=== PATIENT | male | born 1950 | race Caucasian/White ===

== ENCOUNTER 2018-09-16 15:43 | Outpatient (REF) | payer OTHER, SELFPAY | END 2018-09-16 16:03 | LOC: NCHCN 15:43 | PROVIDERS: PCP Physician Assistant Medical; Referring Provider Nurse Practitioner Family; Visit Provider Nurse Practitioner Family | DX: K13.70 Unspecified lesions of oral mucosa (principal) | CPT/HCPCS: 87529; 87798 ==

== ENCOUNTER 2019-02-02 17:00 | Inpatient (IN) | payer OTHER, SELFPAY ==
[2019-02-02] VITALS (17 sets, daily range): BP systolic 92–168; BP diastolic 59–137; PULSE 68–150; RESP 12–19; TEMP 36.1–37; O2SAT 88–100
--- NOTE | 2019-02-02 17:15 | DI.RAD_ITS ---
SYMPTOM/DIAGNOSIS: N/V/SBO PA CHEST: The heart is normal in size. The lungs are clear. The mediastinal structures and pleura appear intact. CONCLUSION: Normal chest. No evidence of acute cardiopulmonary disease. 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 SUPINE AND UPRIGHT FILMS : Supine and upright films of the abdomen were obtained. There is scattered gas and feces in the colon. Small air fluid levels are identified in the colon. There are some mildly dilated small bowel loops with air fluid levels. The findings are nonspecific. There is no evidence of free air. There is no evidence of gross organomegaly or localized intra-abdominal or pelvic mass. SUMMARY: Findings which could represent an ileus. The possibility of a partial small bowel obstruction could not be entirely excluded. If there is further strong specific clinical question then further assessment with a CT could be considered.
--- NOTE | 2019-02-02 17:17 | W.ED.GENAD ---
Discharge Plan Disposition Patient Disposition: [facility] INPATIENT Condition: Improving Discharge Details Chief Complaint: Abd Prob Clinical Impression: Small bowel obstruction Reason For Visit: i have an obstruction Primary Care Provider: Travis Lemon ED Provider: Miko Mcmullen Home Meds and New Rx's Prescriptions: No Action hyoscyamine sulfate [Levsin/SL] 0.125 MG tablet, sublingual 0.125 mg Sublingual Q4H PRN Qty: 20 RF: 0 aspirin [Aspir-81] 81 MG tablet,delayed release (DR/EC) 81 mg PO DAILY RF: 0 clopidogrel [Plavix] 75 MG tablet 75 mg PO DAILY RF: 0 atorvastatin [Lipitor] 20 MG tablet 20 mg PO DAILY RF: 0 lisinopril 20 MG tablet 20 mg PO DAILY RF: 0 nitroglycerin [Nitrostat] 0.4 MG tablet, sublingual 1 tab Sublingual Q5 MIN PRN X3 PRNRF: 0 albuterol sulfate [ProAir HFA] 8.5 GM HFA aerosol inhaler 8.5 gm Inhalation DIRECTED RF: 0 oxycodone 5 MG tablet 5 mg PO Q6H PRN PRN (Reason: Severe Pain) Qty: 12 RF: 0 tiotropium bromide [Spiriva with HandiHaler] 1 PUFF capsule, w/inhalation device 1 puff Inhalation DAILY RF: 0 budesonide-formoterol [Symbicort] 10.2 GM HFA aerosol inhaler 2 puff Inhalation BID RF: 0 Medical Decision Making 68-year-old male with a history of recurrent small bowel obstruction presents with abdominal distention and vomiting over hours today. He is hypertensive and in distress on arrival. Abdomen is distended and tympanitic. Most consistent with acute small bowel obstruction, must rule out free air. Patient had IV access established, laboratories obtained, given fluid bolus, antiemetic, parenteral analgesic with some improvement. His white blood cell count is unremarkable and chemistries are reassuring with a negative lipase. X-ray reveals small bowel obstruction with air-fluid levels. Case discussed with Dr. Rowan patient to be admitted. Lab Data Lab results reviewed: Yes I reviewed the patient's lab results. Laboratory Results - last 24 hr 02/02/19 02/02/19 02/02/19 17:20 17:20 18:00 WBC 9.88 RBC 5.46 Hgb 18.1 H Hct 51.6 H MCV 94.5 MCH 33.2 H MCHC 35.1 RDW 13.0 Plt Count 219 MPV 9.8 Immature Gran % 0.9 Neutrophils % 63.3 Lymphocytes % 22.6 Monocytes % 10.6 Eosinophils % 1.8 Basophils % 0.8 Absolute Neutrophils 6.25 Absolute Lymphocytes 2.23 Absolute Monocytes 1.05 H Absolute Eosinophils 0.18 Absolute Basophils 0.08 Sodium 137 Potassium 4.0 Chloride 100 Carbon Dioxide 28.6 Anion Gap 8.4 BUN 17 Creatinine 1.24 Estimated GFR/1.73 m2 58.33 Glucose 90 Calcium 10.0 Magnesium 2.3 Total Bilirubin 0.8 AST 30 ALT 32 Alkaline Phosphatase 87 Total Protein 8.7 H Albumin 4.8 Lipase 71 L Urine Color Yellow Urine Clarity Clear Urine pH 7.5 Ur Specific [place] 1.015 Urine Protein Negative Urine Ketones Negative Urine Blood Negative Urine Nitrite Negative Urine Bilirubin Negative Urine Urobilinogen 0.2 Ur Leukocyte Esterase Negative Urine Glucose Negative HPI General Mode of arrival: ambulatory. Date/Time Provider Initiated Documentation: 02/02/19 17:11. Limitations to Documentation: no limitations. Information obtained by: patient. History of Present Illness 68 year old M presents to the emergency department with the chief complaint of Recurrent abdominal distention, nausea and vomiting similar to previous sbo, described as moderate and similar to prior episodes, Quality is described as aching and constant, and is localized to the abdomen. Patient reports no radiation. Patient started experiencing this hour(s) and it has been constant. No relieving factors improve symptom(s), No exacerbating factors reported . Patient notes nausea/vomiting; denies fever/chills. Patient did receive the following treatments prior to arrival, none Related Data Home Medications Medication Instructions Recorded Confirmed aspirin [Aspir-81] 81 mg PO DAILY 08/19/13 03/07/18 atorvastatin [Lipitor] 20 mg PO DAILY 08/19/13 03/07/18 clopidogrel [Plavix] 75 mg PO DAILY 08/19/13 03/07/18 lisinopril 20 mg PO DAILY 08/19/13 03/07/18 nitroglycerin [Nitrostat] 1 tab SUBLINGUAL Q5 MIN PRN X3 PRN 08/19/13 03/07/18 albuterol sulfate [ProAir HFA] 8.5 gm INHALATION DIRECTED 03/22/17 03/07/18 budesonide-formoterol [Symbicort] 2 puff INHALATION BID 08/07/17 03/07/18 tiotropium bromide [Spiriva with 1 puff INHALATION DAILY 08/07/17 03/07/18 HandiHaler] hyoscyamine sulfate [Levsin/SL] 0.125 mg SUBLINGUAL Q4H PRN #20 08/30/17 tab.sl oxycodone 5 mg PO Q6H PRN PRN #12 tab 12/31/17 03/07/18 Previous Rx's Medication Instructions Recorded hyoscyamine sulfate [Levsin/SL] 0.125 mg SUBLINGUAL Q4H PRN #20 08/30/17 tab.sl oxycodone 5 mg PO Q6H PRN PRN #12 tab 12/31/17 Allergies Allergy/AdvReac Type Severity Reaction Status Date / Time adhesive Allergy Intermediate Skin Rash Unverified 04/09/18 09:19 wool Allergy Intermediate Skin Rash Unverified 04/09/18 09:19 gonzalez Allergy Intermediate Swelling/Ed Uncoded 03/07/18 17:50 tete Review of Systems Review of Systems 6 systems reviewed and otherwise negative. Patient denies chest pain or palpitations. Passed flatus this am [facility] Medical History COPD (chronic obstructive pulmonary disease) GA (myocardial infarction) Small bowel obstruction due to adhesions Surgical History Appendectomy Colonoscopy - IV Sedation Laparotomy Social History Smoking/Tobacco Use Status: Current every day Tobacco Type: cigarettes Alcohol Intake: current Alcohol Intake frequency: 0-2 drinks per day Alcohol type: beer Drug use: Never Substance use type: does not use Do you feel safe at home: Yes Do you feel safe in your relationship?: Yes Exam Narrative Exam Narrative: GEN: awake, alert, oriented 3. Pleasant, well groomed, interactive. HEAD: Normocephalic, atraumatic ENT: Mucous membranes moist, oropharynx unremarkable, External ear exam unremarkable EYES: PERRL, EOMI NECK: Full ROM, no PORTER, no menigismus CHEST/RESP: Nontender, clear to auscultation bilateral, no wheeze/rhonchi/rales CARDIOVASCULAR: RRR, no murmur, rub enzo. 2+ Rad pulse bilateral ABDOMEN: Distended and tympanitic, diffusely tender, high-pitched bowel sound EXT: Full ROM, no edema, no rash Neuro: Grossly normal neurologic exam, conversant, interactive. Psych: Speech fluent, thoughts congruent, affect normal
[2019-02-02 17:46] LABS: Abs Immature Grans 0.09 k/cumm (0.0-0.09); Absolute Basophil Count 0.08 k/cumm (0.0-0.2); Absolute Eosinophil Count 0.18 k/cumm (0.0-0.7); Absolute Lymphocyte Count 2.23 k/cumm (1.2-3.4); Absolute Monocyte Count 1.05 k/cumm (0.11-0.7); Absolute Neutrophil Count 6.25 k/cumm (1.2-6.7); Basophils % 0.8; Eosinophils % 1.8; HCT 51.6 % (40.0-50.0); HGB 18.1 g/dL (13.5-17.5); Immature Grans % 0.9; Lymphocytes % 22.6; Mean Corp. HGB Concentration 35.1 g/dL (32.0-36.0); Mean Corpuscular Hemoglobin 33.2 pg (27.0-33.0); Mean Corpuscular Volume 94.5 fL (80-95); Mean Platelet Volume 9.8 fL (8.0-11.0); Monocytes % 10.6; Neutrophils % 63.3; Platelet Count 219 x1000/uL (130-400); RBC 5.46 m/cumm (4.50-6.00); White Blood Cell Count 9.88 k/cumm (4.4-10.8)
[2019-02-02] MEDS: Normal Saline 1,000 ML 1000 ML IV (17:54)
[2019-02-02] MEDS: Ondansetron 4 MG/2 ML VIAL IVP ×2 (17:55→23:10)
[2019-02-02 17:56] LABS: ALT 32 U/L (12-78); AST 30 U/L (15-37); Albumin 4.8 g/dL (3.4-5.0); Alkaline Phosphatase 87 U/L (46-116); Anion Gap 8.4 mmol/L (3-11); BUN 17 mg/dL (7-18); Bilirubin, Total 0.8 mg/dL (0.2-1.0); CO2 28.6 mmol/L (21.0-32.0); CREATININE 1.24 mg/dL (0.70-1.30); Chloride 100 mmol/L (98-107); Estimated GFR 58.33 (mL/min/1.73m2); Glucose 90 mg/dL (70-100); Lipase 71 U/L (73-393); Magnesium 2.3 mg/dL (1.8-2.4); Sodium 137 mmol/L (136-145); Total Protein 8.7 g/dL (6.4-8.2)
[2019-02-02] MEDS: MORPHine 10 MG/ML VIAL 4 MG IVP (17:56)
[2019-02-02] MEDS: Normal Saline Flush 10 ML SYR IVP (18:03)
[2019-02-02 18:08] LABS: Bilirubin Negative (Negative); Blood Negative (Negative); Clarity Clear; Glucose Negative (Negative); Ketones Negative (Negative); Leukocyte Esterase Negative (Negative); Nitrite Negative (Negative); Specific Gravity 1.015 (1.005-1.025); Urobilinogen 0.2 EU/dL (Up TO 0.2); pH 7.5 (5-8)
--- NOTE | 2019-02-02 18:47 | W.PM.HP.N ---
Date of service: 02/02/19 Time of Service: 18:47 Assessment and Plan (1) Small bowel obstruction: Current visit: No Status: Acute pt does not have a surgical abdomen at this time. no fever/elevated WBC/ no peritonitis. he is refusing NGT. we will cont w/ conservative and supportive care Pt GA was remote- he is not sure why he is still on plavix- I am severe cardiac dx + smoker (2) History of Surgical Procedure: Current visit: No Status: Chronic as above (3) Coronary arteriosclerosis: Current visit: No Status: Chronic as above (4) Chronic obstructive lung disease: Current visit: No Status: Chronic as above (5) Hyperlipidemia: Current visit: No Status: Chronic as above (6) Benign hypertension: Current visit: No Status: Chronic as above History of Present Illness Consults Consult date: 02/02/19 Requesting physician: Miko Mcmullen Narrative: pt has a long standard hx of SBO. When he had his first screening CE in 2012. He has had mult. sm bowel obstructons since that time. Last night he madee home made bengali fried. Today he woke up w/ abdom pain and bloating/distention. + N/v. He still is passing gas. As I walked into the room hes was wretching. He refuses NGT. He does not have an acute abdom at this time. His GA was in 2004- he is still on the plavix- not sure why. He denies having CP at rest or w/ acitivity. he still smokes Review of Systems Review of Systems All systems reviewed & are unremarkable except as noted in HPI and below Constitutional Reports as per HPI, Reports system reviewed and no additional complaints, except as docu, Denies anorexia, Denies chills, Denies difficulty sleeping, Denies fatigue, Denies headache(s), Denies lethargy, Denies malaise, Denies poor appetite, Denies weakness, Denies weight gain and Denies weight loss Eyes Reports as per HPI, Reports system reviewed and no additional complaints, except as docu and Denies change in vision ENT Reports system reviewed and no additional complaints, except as docu, Reports as per HPI, Denies change in voice, Denies dental pain, Denies dysphagia, Denies dizziness, Denies facial pain, Denies headache(s) and Denies odynophagia Cardiovascular Reports as per HPI, Reports system reviewed and no additional complaints, except as docu, Denies chest pain, Denies chest pain with activity, Denies syncope, Denies leg edema and Denies dyspnea Comments: no chest pain w/ activity Respiratory Reports as per HPI, Reports system reviewed and no additional complaints, except as docu, Denies chest congestion, Reports cough, Denies pain with cough and Denies dyspnea Comments: chronic cough 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 no mesh Genitourinary Reports system reviewed and no additional complaints, except as docu Musculoskeletal Reports system reviewed and no additional complaints, except as docu, Reports as per HPI, Denies abnormal gait, Denies arthralgias and Denies muscle weakness Integumentary/Breasts Reports system reviewed and no additional complaints, except as docu, Reports as per HPI, Denies changing lesions, Denies new lesions and Denies jaundice Neurologic Reports system reviewed and no additional complaints, except as docu, Reports as per HPI, Denies abnormal speech, Denies abnormal gait, Denies dizziness, Denies syncope, Denies headache(s), Denies memory loss and Denies weakness Psychiatric Reports system reviewed and no additional complaints, except as docu, Reports as per HPI, Denies change in appetite and Denies memory loss Endocrine Denies fatigue, Denies polydipsia and Denies polyuria Hematologic/Lymphatic Reports system reviewed and no additional complaints, except as docu, Denies easy bleeding and Denies easy bruising Allergic/Immunologic Denies system reviewed and no additional complaints, except as docu, Reports as per HPI and Denies urticaria PFSH Medical History COPD (chronic obstructive pulmonary disease) GA (myocardial infarction) Small bowel obstruction due to adhesions Surgical History Appendectomy Colonoscopy - IV Sedation Laparotomy Social History Smoking/Tobacco Use Status: Current every day Tobacco Type: cigarettes Alcohol Intake: current Alcohol Intake frequency: 0-2 drinks per day Alcohol type: beer Drug use: Never Substance use type: does not use Do you feel safe at home: Yes Do you feel safe in your relationship?: Yes Meds Home Medications Medication Instructions Recorded Confirmed Type aspirin [Aspir-81] 81 mg PO DAILY 08/19/13 02/02/19 History atorvastatin [Lipitor] 20 mg PO DAILY 08/19/13 02/02/19 History clopidogrel [Plavix] 75 mg PO DAILY 08/19/13 02/02/19 History lisinopril 20 mg PO DAILY 08/19/13 02/02/19 History nitroglycerin [Nitrostat] 1 tab SUBLINGUAL Q5 MIN PRN X3 PRN 08/19/13 02/02/19 History albuterol sulfate [ProAir HFA] 8.5 gm INHALATION DIRECTED 03/22/17 02/02/19 History Spiriva with HandiHaler 1 puff INHALATION DAILY 08/07/17 02/02/19 History Symbicort 2 puff INHALATION BID 08/07/17 02/02/19 History hyoscyamine sulfate [Levsin/SL] 0.125 mg SUBLINGUAL Q4H PRN #20 08/30/17 02/02/19 Rx tab.sl Allergies Allergy/AdvReac Type Severity Reaction Status Date / Time adhesive Allergy Intermediate Skin Rash Unverified 04/09/18 09:19 wool Allergy Intermediate Skin Rash Unverified 04/09/18 09:19 gonzalez Allergy Intermediate Swelling/Ed Uncoded 03/07/18 17:50 tete Exam Const General: cooperative, healthy appearing, comfortable, no acute distress, well developed and well groomed Nutritional Appearance: average body habitus and well nourished Orientation: alert, awake and oriented x3 HENMT Head: normal to inspection, normocephalic and atraumatic Ears: hearing grossly normal bilaterally and external ears normal General nose exam: external nose normal Face and sinus: normal facial exam and sinuses nontender Mouth: oral mucosae normal, lip normal, tongue normal and moist mucous membranes Teeth and gingiva: edentulous Other: chronic skin changes from sunexposure adn smoking Eyes General: appearance normal, both eyes and all related structures Conjunctivae: conjunctivae normal Sclera: sclerae normal Pupils: PERRL Neck Neck: normal visual inspection and full ROM Chest Chest: normal inspection of the chest Resp Effort & Inspection: normal respiratory effort, able to speak in complete sentences, no cough, no nasal flaring, not tachypneic and no use of accessory muscles Auscultation: clear to auscultation bilaterally, no rales, no rhonchi and no wheezes Cardio Jugular venous pressure: no JVD Rate: regular rate Rhythm: regular rhythm GI Inspection: normal to inspection, no edema and distended Palpation: soft, no masses, nontender and No ascites Auscultation: normal bowel sounds, abnormal bowel sounds, high-pitched sounds and hyperactive bowel sounds Other: diffusely tender that is a 4/10. no peritonitis. no fever/ or elevated WBC. pt is vomiting but also passing gas. pt was recently medicated. Skin General skin exam: no rashes or lesions noted Trauma: no lacerations or abrasions Neuro General: alert, oriented x3, oriented, gait normal, moves all extremities, no focal motor deficits and CN's II-XI intact bilaterally Cognition: normal cognition Speech: speech normal Gait: normal gait Motor: muscle tone normal throughout Extrem General: normal to inspection, full ROM and no clubbing, cyanosis or edema Psych Appearance: grossly normal and well kempt Mental Status: mental status grossly normal Speech and Movement: speech and movement normal Affect: normal affect Results Labs : 02/02/19 17:20 02/02/19 17:20 Laboratory Results - last 24 hr 02/02/19 02/02/19 02/02/19 17:20 17:20 18:00 WBC 9.88 RBC 5.46 Hgb 18.1 H Hct 51.6 H MCV 94.5 MCH 33.2 H MCHC 35.1 RDW 13.0 Plt Count 219 MPV 9.8 Immature Gran % 0.9 Neutrophils % 63.3 Lymphocytes % 22.6 Monocytes % 10.6 Eosinophils % 1.8 Basophils % 0.8 Absolute Neutrophils 6.25 Absolute Lymphocytes 2.23 Absolute Monocytes 1.05 H Absolute Eosinophils 0.18 Absolute Basophils 0.08 Sodium 137 Potassium 4.0 Chloride 100 Carbon Dioxide 28.6 Anion Gap 8.4 BUN 17 Creatinine 1.24 Estimated GFR/1.73 m2 58.33 Glucose 90 Calcium 10.0 Magnesium 2.3 Total Bilirubin 0.8 AST 30 ALT 32 Alkaline Phosphatase 87 Total Protein 8.7 H Albumin 4.8 Lipase 71 L Urine Color Yellow Urine Clarity Clear Urine pH 7.5 Ur Specific [place] 1.015 Urine Protein Negative Urine Ketones Negative Urine Blood Negative Urine Nitrite Negative Urine Bilirubin Negative Urine Urobilinogen 0.2 Ur Leukocyte Esterase Negative Urine Glucose Negative Last Vital Signs Temp 36.7 C 02/02/19 17:11 Pulse 90 02/02/19 17:11 Resp 18 02/02/19 17:11 BP 166/104 H 02/02/19 17:11 Pulse Ox 96 02/02/19 17:11
--- NOTE | 2019-02-02 18:56 | DI.VRAD_ITS ---
EXAM: XR Abdomen 2 Views with XR Chest 1 View EXAM DATE/TIME: 02/02/2019 5:17 PM CLINICAL HISTORY: 68 years old, male; Signs and symptoms; Nausea and vomiting; Patient HX: N/v/sbo; Additional info: Per PT: Small bowel obstruction TECHNIQUE: XR of the abdomen (2 views) with XR chest (1 view). COMPARISON: CR ABD FLAT UPRIGHT PA CHEST 08/11/2017 8:38 AM FINDINGS: Lungs: Hyperexpanded lung dowd consistent with COPD Pleural space: Normal. No pneumothorax. Heart/Mediastinum: Stable cardiac silhouette Gastrointestinal tract: Dilated loops of small bowel with air-fluid levels may represent obstruction or ileus. Intraperitoneal space: Normal. No free air. Bones/joints: Prosthesis in the right humeral head Soft tissues: Normal. IMPRESSION: Dilated loops of small bowel with air-fluid levels may represent obstruction or ileus. Dictated and Authenticated by: Stephany Xiong MD. Ordering:TATUM Crouch MD
[2019-02-02] MEDS: Lactated Ringers 1,000 ML 125 ML IV (19:53)
[2019-02-02] MEDS: FAMOTIDINE 20 MG/50 ML BAG 200 MG IVPB (22:29)
[2019-02-02] MEDS: Budesonide/Formoterol 160/4.5 6 GM 60 PUFF INH IH (22:32)
[2019-02-03] MEDS: Lactated Ringers 1,000 ML 125 ML IV (04:05)
[2019-02-03] MEDS: Normal Saline Flush 10 ML SYR IVP (04:06)
--- NOTE | 2019-02-03 07:20 | DI.RAD_ITS ---
SYMPTOM/DIAGNOSIS: SBO ABDOMEN FLAT AND UPRIGHT: There are some mildly dilated loops of small bowel which contain air fluid levels and there are some air fluid levels in the proximal colon where the bowel is not dilated. There is no evidence of free air, gross organomegaly or localized intra- abdominal or pelvic mass. SUMMARY: nonspecific findings in the abdomen which could represent an ileus or conceivably a partial low small bowel obstruction. These findings to be correlated with the patient's clinical status and if appropriate further assessment with CT could be considered.
[2019-02-03 07:40] VITALS: BP 106/79; PULSE 83; RESP 18; TEMP 37.1; O2SAT 94
--- NOTE | 2019-02-03 07:46 | PGE_ITS ---
Documented by User: SANCHO Blas 02/03/19 07:48 Date of Service Date of service: 02/03/19 Time of Service: 07:43 Assessment and Plan (1) Small bowel obstruction: Current visit: No Status: Acute ABD Xray pending. Patient continues to refuse NG tube. FLUIDS- Continue LR PAIN- Morphine is ordered. DIET- NPO ACTIVITY- Encouraged ambulation TID. (2) History of Surgical Procedure: Current visit: No Status: Chronic as above (3) Coronary arteriosclerosis: Current visit: No Status: Chronic as above (4) Chronic obstructive lung disease: Current visit: No Status: Chronic as above (5) Hyperlipidemia: Current visit: No Status: Chronic as above (6) Benign hypertension: Current visit: No Status: Chronic as above Subjective Interval history since last seen: I feel about the same, but the moment I have a bowel movement I am out of here. Patient reports passing flatus. Denies nausea and vomiting. Reports colicky abdominal pain. Exam Const General: cooperative and comfortable Orientation: alert and oriented x3 Resp Effort & Inspection: normal respiratory effort, no audible wheezes and cough GI Inspection: distended and visible herniation (ventral, incision hernia. Easily reduced. ) Palpation: firm, no guarding and tender in the LLQ and in the RLQ Auscultation: hypoactive bowel sounds Objective Objective Clinical Data: Abnormal lab results 02/02/19 02/02/19 Range/Units 17:20 17:20 Hgb 18.1 H (13.5-17.5) g/dL Hct 51.6 H (40.0-50.0) % MCH 33.2 H (27.0-33.0) pg Absolute Monocytes 1.05 H (0.11-0.7) k/cumm Total Protein 8.7 H (6.4-8.2) g/dL Lipase 71 L (73-393) U/L Vital Signs Temperature 37 C 02/02/19 23:40 Temperature Source Tympanic 02/02/19 23:40 Pulse 74 02/02/19 23:40 Pulse Rhythm Regular 02/03/19 00:25 Respiratory Rate 19 02/02/19 23:40 Respiratory Effort 02/03/19 00:25 Respiratory Depth Normal 02/03/19 00:25 Respiratory Pattern Normal 02/03/19 00:25 Blood Pressure 111/70 02/02/19 23:40 Blood Pressure Mean 72 02/02/19 19:47 Pulse Oximetry 100 02/02/19 23:40 Oxygen Delivery Method Room Air 02/02/19 23:40 Oxygen Flow Rate 0 02/02/19 23:40 Pain Level 8 02/03/19 04:05 Comment 02/02/19 21:00 Intake & Output 02/02/19 02/03/19 02/03/19 18:59 06:59 18:59 Intake Total 1999 Output Total 100 / 100 Balance 190 / 190 Weight 66.5 kg 66.5 kg Intake: IV 1999 Output: Urine 100 / 100 Other: Urine Color Yellow Urine Appearance Clear Urine Odor Normal Voiding Methods Urinal Laboratory Results WBC 9.88 k/cumm (4.4-10.8) 02/02/19 17:20 RBC 5.46 m/cumm (4.50-6.00) 02/02/19 17:20 Hgb 18.1 g/dL (13.5-17.5) H 02/02/19 17:20 Hct 51.6 % (40.0-50.0) H 02/02/19 17:20 MCV 94.5 fL (80-95) 02/02/19 17:20 MCH 33.2 pg (27.0-33.0) H 02/02/19 17:20 MCHC 35.1 g/dL (32.0-36.0) 02/02/19 17:20 RDW 13.0 % (11.8-14.1) 02/02/19 17:20 Plt Count 219 x1000/uL (130-400) 02/02/19 17:20 MPV 9.8 fL (8.0-11.0) 02/02/19 17:20 Immature Gran % 0.9 02/02/19 17:20 Neutrophils % 63.3 02/02/19 17:20 Lymphocytes % 22.6 02/02/19 17:20 Monocytes % 10.6 02/02/19 17:20 Eosinophils % 1.8 02/02/19 17:20 Basophils % 0.8 02/02/19 17:20 Absolute Neutrophils 6.25 k/cumm (1.2-6.7) 02/02/19 17:20 Absolute Lymphocytes 2.23 k/cumm (1.2-3.4) 02/02/19 17:20 Absolute Monocytes 1.05 k/cumm (0.11-0.7) H 02/02/19 17:20 Absolute Eosinophils 0.18 k/cumm (0.0-0.7) 02/02/19 17:20 Absolute Basophils 0.08 k/cumm (0.0-0.2) 02/02/19 17:20 Sodium 137 mmol/L (136-145) 02/02/19 17:20 Potassium 4.0 mmol/L (3.5-5.1) 02/02/19 17:20 Chloride 100 mmol/L (98-107) 02/02/19 17:20 Carbon Dioxide 28.6 mmol/L (21.0-32.0) 02/02/19 17:20 Anion Gap 8.4 mmol/L (3-11) 02/02/19 17:20 BUN 17 mg/dL (7-18) 02/02/19 17:20 Creatinine 1.24 mg/dL (0.70-1.30) 02/02/19 17:20 Estimated GFR/1.73 m2 58.33 (mL/min/1.73m2) 02/02/19 17:20 Glucose 90 mg/dL (70-100) 02/02/19 17:20 Calcium 10.0 mg/dL (8.5-10.1) 02/02/19 17:20 Magnesium 2.3 mg/dL (1.8-2.4) 02/02/19 17:20 Total Bilirubin 0.8 mg/dL (0.2-1.0) 02/02/19 17:20 AST 30 U/L (15-37) 02/02/19 17:20 ALT 32 U/L (12-78) 02/02/19 17:20 Alkaline Phosphatase 87 U/L (46-116) 02/02/19 17:20 Total Protein 8.7 g/dL (6.4-8.2) H 02/02/19 17:20 Albumin 4.8 g/dL (3.4-5.0) 02/02/19 17:20 Lipase 71 U/L (73-393) L 02/02/19 17:20 Urine Color Yellow (Yellow) 02/02/19 18:00 Urine Clarity Clear 02/02/19 18:00 Urine pH 7.5 (5-8) 02/02/19 18:00 Ur Specific [place] 1.015 (1.005-1.025) 02/02/19 18:00 Urine Protein Negative mg/dL (Negative) 02/02/19 18:00 Urine Ketones Negative mg/dL (Negative) 02/02/19 18:00 Urine Blood Negative (Negative) 02/02/19 18:00 Urine Nitrite Negative (Negative) 02/02/19 18:00 Urine Bilirubin Negative (Negative) 02/02/19 18:00 Urine Urobilinogen 0.2 EU/dL (Up TO 0.2) 02/02/19 18:00 Ur Leukocyte Esterase Negative (Negative) 02/02/19 18:00 Urine Glucose Negative mg/dL (Negative) 02/02/19 18:00 Documented by User: Maritne Rowan DO 02/03/19 12:41 Assessment and Plan (1) Small bowel obstruction: Current visit: No Status: Acute pt had a bm. Was upset b/c he was not seen in a timely fashion. left ama
--- NOTE | 2019-02-03 07:51 | PDOC.CMIN ---
- If Service Date Differs Date of service: 02/03/19 Time of Service: 07:51 Care Management Initial Assess REASON FOR HOSPITALIZATION:: SBO PAST MEDICAL HISTORY/PAST SURGICAL HISTORY:: COPD (chronic obstructive pulmonary disease). MD (myocardial infarction). Small bowel obstruction due to adhesions. Appendectomy. Colonoscopy - IV Sedation. Laparotomy PREVIOUS FUNCTIONAL STATUS/SOCIAL/FAMILY SUPPORTS:: Lenin resides with his Jane in [place]. He is independent at baseline, and manages ADL's CURRENT FUNCTIONAL STATUS:: Currently Lenin is lying in bed, receptive to discussion ADVANCE DIRECTIVES:: None on file Has patient been provided with information about the portal?: Yes Did the patient sign up for the portal?: No CODE STATUS:: Full Code INSURANCE COVERAGE / FINANCIAL ISSUES:: [facility] [employer] CURRENT HOME/COMMUNITY SERVICES/EQUIPMENT:: Currently Lenin has no services or medical equipment in the community. PRIMARY CARE PHYSICIAN:: Felicita Lemon POTENTIAL DISCHARGE NEEDS:: F/U appointment with PCP PATIENT/FAMILY EDUCATION NEEDS:: Review DC instructions, any limitations, and ongoing DC planning discussion. Discuss 'Ask Me Three' ANTICIPATED BARRIERS TO DISCHARGE:: None identified at this time. TRANSPORTATION:: Via private vehicle PLAN:: Lenin will return home with no anticipated services. After initial visit Lenin left AMA. He will F/U with PCP.
--- NOTE | 2019-02-03 07:59 | INITIAL_ITS ---
- If Service Date Differs Date of service: 02/03/19 Time of Service: 07:51 Care Management Initial Assess REASON FOR HOSPITALIZATION:: SBO PAST MEDICAL HISTORY/PAST SURGICAL HISTORY:: COPD (chronic obstructive pulmonary disease). [place] (myocardial infarction). Small bowel obstruction due to adhesions. Appendectomy. Colonoscopy - IV Sedation. Laparotomy PREVIOUS FUNCTIONAL STATUS/SOCIAL/FAMILY SUPPORTS:: Lenin resides with his Jane in [place]. He is independent at baseline, and manages ADL's CURRENT FUNCTIONAL STATUS:: Currently Lenin is lying in bed, receptive to discussion ADVANCE DIRECTIVES:: None on file Has patient been provided with information about the portal?: Yes Did the patient sign up for the portal?: No CODE STATUS:: Full Code INSURANCE COVERAGE / FINANCIAL ISSUES:: [facility] [employer] CURRENT HOME/COMMUNITY SERVICES/EQUIPMENT:: Currently Lenin has no services or medical equipment in the community. PRIMARY CARE PHYSICIAN:: Felicita Lemon POTENTIAL DISCHARGE NEEDS:: F/U appointment with PCP PATIENT/FAMILY EDUCATION NEEDS:: Review DC instructions, any limitations, and ongoing DC planning discussion. Discuss 'Ask Me Three' ANTICIPATED BARRIERS TO DISCHARGE:: None identified at this time. TRANSPORTATION:: Via private vehicle PLAN:: Lenin will return home with no anticipated services. After initial visit Lenin left AMA. He will F/U with PCP.
[2019-02-03] MEDS: Lisinopril 20 MG TAB PO (08:47)
[2019-02-03] MEDS: Magnesium Citrate 300 ML BTL PO (08:50)
[2019-02-03] MEDS: Budesonide/Formoterol 160/4.5 6 GM 60 PUFF INH IH (09:03)
[2019-02-03 12:01] LABS: Anion Gap 10.7 mmol/L (3-11); BUN 29 mg/dL (7-18); CO2 24.3 mmol/L (21.0-32.0); CREATININE 1.72 mg/dL (0.70-1.30); Calcium 8.9 mg/dL (8.5-10.1); Chloride 107 mmol/L (98-107); Estimated GFR 39.98 (mL/min/1.73m2); Glucose 102 mg/dL (70-100); Magnesium 2.4 mg/dL (1.8-2.4); Potassium 3.9 mmol/L (3.5-5.1); Sodium 142 mmol/L (136-145)
--- NOTE | 2019-02-03 20:03 | NUR.NOTE ---
Nursing Note:[id number] WISHING TO LEAVE ama. TEACHING DONE. NOT WILLING TO WAIT FOR MD TO ARRIVE ON FLOOR FROM OR. STATES HE KNOWS HIS BODY AND HAS POOPED A COUPLE TIMES AND WILL GO HOME AND EAT FINE LIKE HE HAS IN THE PAST. PACEING THE HALLWAY AND LEFT THE UNIT TO GET COFFEE WHEN TOLD T THE DOCTOR WAS COMING UP TO SEE HIM IN 15-20 MINUTES. STATES HE WILL GO GET COFFEE AND COME BACK. I OFFERED TO GET HIM COFFEE IN HIS ROOM AND HE WAS VERY VOCAL ABOUT GETTING HIS OWN FROM THE [place]. HE DID RETURN TO SPEAK TO THE MD AND LEFT AMA. HE WAS UNWILLING TO STAY FOR A FEW DAYS TO MAKE SURE HIS sbo WAS CLEARED AND HE WAS ABLE TO TOLERATE A DIET.
== END 2019-02-03 12:39 | disposition left against medical advice (07) | DRG 390 ==
LOC: ER 19:35 → MS 20:15
PROVIDERS: Admitting Provider Surgery; Emergency Provider Emergency Medicine; PCP Physician Assistant Medical; Visit Provider Surgery
DX: K56.609 Unspecified intestinal obstruction, unspecified as to partial versus complete obstruction (principal); Z53.21 Procedure and treatment not carried out due to patient leaving prior to being seen by health care provider; J44.9 Chronic obstructive pulmonary disease, unspecified; I10 Essential (primary) hypertension; F17.210 Nicotine dependence, cigarettes, uncomplicated; I25.2 Old myocardial infarction; Z79.02 Long term (current) use of antithrombotics/antiplatelets; I25.10 Atherosclerotic heart disease of native coronary artery without angina pectoris; E78.5 Hyperlipidemia, unspecified
CPT/HCPCS: 36415; 80048; 80053; 83690; 94640; 96361; 96372; 96374; 96375; 99222; 99232; 99285; 74019; 74022; 81003; 83735; 85025; 99284; J2270; J2405

== ENCOUNTER 2019-03-28 19:06 | Emergency (ER) | payer OTHER, SELFPAY ==
[2019-03-28 19:13] VITALS: BP 136/88; PULSE 97; RESP 20; TEMP 37.1; O2SAT 95
--- NOTE | 2019-03-28 19:54 | ED.GENADUL_ITS ---
Discharge Plan Disposition Patient Disposition: HOME Condition: Improving Discharge Details Chief Complaint: Cellulitis Clinical Impression: Venous stasis ulcer, Abrasion Primary Care Provider: Travis Lemon ED Provider: Mesfin Drake Home Meds and New Rx's Prescriptions: Continued hyoscyamine sulfate [Levsin/SL] 0.125 MG tablet, sublingual 0.125 mg Sublingual Q4H PRN Qty: 20 RF: 0 aspirin [Aspir-81] 81 MG tablet,delayed release (DR/EC) 81 mg PO DAILY RF: 0 clopidogrel [Plavix] 75 MG tablet 75 mg PO DAILY RF: 0 atorvastatin [Lipitor] 20 MG tablet 20 mg PO DAILY RF: 0 lisinopril 20 MG tablet 20 mg PO DAILY RF: 0 nitroglycerin [Nitrostat] 0.4 MG tablet, sublingual 1 tab Sublingual Q5 MIN PRN X3 PRNRF: 0 albuterol sulfate [ProAir HFA] 8.5 GM HFA aerosol inhaler 8.5 gm Inhalation DIRECTED RF: 0 Spiriva with HandiHaler 1 PUFF capsule, w/inhalation device 1 puff Inhalation DAILY RF: 0 Symbicort 10.2 GM HFA aerosol inhaler 2 puff Inhalation BID RF: 0 Discharge Instructions Instructions: Abrasion (ED) Additional Instructions: Apply antibacterial ointment and change dressing twice daily. Elevate leg whenever possible and see your primary doctor or the emergency department in 2 to 3 days for a wound check return sooner for increasing pain swelling purulent discharge or other concern . Referrals: Travis Lemon PA [Primary Care Provider] - Medical Decision Making 68-year-old male with blunt trauma to left walker and a mild wound ulceration without evidence of infection. Plan for back to tracing twice daily dressing changes elevation ice and wound check in 2 to 3 days with either his primary doctor or the emergency department return sooner for increasing pain warmth purulent discharge or other concern Medical Records Medical records reviewed: Yes I reviewed the patient's medical records. HPI 68-year-old male past medical history of CAD with 2 stents hypertension hyperlipidemia COPD still smoking presents with pain and clear fluid from the wound to his left walker.patient fell against a metal truck bed 2 weeks ago banging his left walker at the time. Later that day patient noted bleeding around his sock and found an abrasion and tenderness consistent. Patient cleaned and bandaged the wound and is been watching it since today patient banged it and noted some clear drainage and became concerned about possible infection. no systemic symptoms no warmth, no purulent drainage. NO difficulty ambulating. Pain is sharp nonradiating worse with pressure General Date/Time Provider Initiated Documentation: 03/28/19 19:16 . Related Data Home Medications Medication Instructions Recorded Confirmed aspirin [Aspir-81] 81 mg PO DAILY 08/19/13 03/28/19 atorvastatin [Lipitor] 20 mg PO DAILY 08/19/13 03/28/19 clopidogrel [Plavix] 75 mg PO DAILY 08/19/13 03/28/19 lisinopril 20 mg PO DAILY 08/19/13 03/28/19 nitroglycerin [Nitrostat] 1 tab SUBLINGUAL Q5 MIN PRN X3 PRN 08/19/13 03/28/19 albuterol sulfate [ProAir HFA] 8.5 gm INHALATION DIRECTED 03/22/17 03/28/19 Spiriva with HandiHaler 1 puff INHALATION DAILY 08/07/17 03/28/19 Symbicort 2 puff INHALATION BID 08/07/17 03/28/19 hyoscyamine sulfate [Levsin/SL] 0.125 mg SUBLINGUAL Q4H PRN #20 08/30/17 03/28/19 tab.sl Previous Rx's Medication Instructions Recorded hyoscyamine sulfate [Levsin/SL] 0.125 mg SUBLINGUAL Q4H PRN #20 08/30/17 tab.sl Allergies Allergy/AdvReac Type Severity Reaction Status Date / Time adhesive Allergy Intermediate Skin Rash Unverified 03/28/19 19:18 wool Allergy Intermediate Skin Rash Unverified 03/28/19 19:18 [email or web address] Allergy Intermediate Swelling/Ed Uncoded 03/28/19 19:18 tete General Stated Complaint: Cellulitis TAL: 3 Review of Systems Review of Systems No shortness of breath chest pain nausea vomiting diarrhea fever chills weight gain weight loss. All systems reviewed & are unremarkable except as noted in HPI and below PFSH Social History Smoking/Tobacco Use Status: Current every day Tobacco Type: cigarettes Alcohol Intake: current Alcohol Intake frequency: 0-2 drinks per day Alcohol type: beer Drug use: Never Substance use type: does not use Do you feel safe at home: Yes Do you feel safe in your relationship?: Yes Exam Narrative Exam Narrative: Pulse oximetry reviewed by me and is normal [] Constitutional: Pt is in no acute distress. he is well appearing. he oriented to person, place, and time. Eyes: conjunctivae are normal. Pupils are equal, round, and reactive to light. No scleral icterus. extraocular muscles are intact Ears/Nose/Mouth/Throat: mucus membranes are moist. Musculoskeletal: neck is supple. normal range of motion in all extremities. Cardiovascular: Normal rate and rhythm. No lower extremity edema regular rate and rhythm no murmurs gallops or rubs[] Respiratory: effort is normal . pt exhibits no stridor or respiratory distress. [] GastrointestinaI: abdomen soft, +BS, nontender, -rebound, -guarding. Neurological: alert and oriented to person, place, and time. he has normal strength, no tremor. Skin: Skin is warm and dry. he is not diaphoretic. Distal perfusion in tact, warm extremities, cap refill ? 2 seconds. 3 cm area open wounds without fluctuance or induration and some serous drainage surrounded by some venous stasis changes no warmth mild tenderness to palpation Hem/Lymph/Imm: No cervical LAD, no goiter, no conjunctival pallor Psych: normal mood and affect. behavior is normal Triage and nurse notes reviewed.[] Course Vital Signs Temperature 37.1 C 03/28/19 19:13 Pulse 97 H 03/28/19 19:13 Respiratory Rate 20 03/28/19 19:13 Blood Pressure 136/88 03/28/19 19:13 Pulse Oximetry 95 03/28/19 19:13 Temperature 37.1 C 03/28/19 19:13 Temperature Source Temporal Artery Scan 03/28/19 19:13 Pulse 97 H 03/28/19 19:13 Respiratory Rate 20 03/28/19 19:13 Respiratory Effort Non-Labored 03/28/19 19:13 Blood Pressure 136/88 03/28/19 19:13 Blood Pressure Position Sitting 03/28/19 19:13 Pulse Oximetry 95 03/28/19 19:13 Oxygen Delivery Method Room Air 03/28/19 19:13 Oxygen Flow Rate 0 03/28/19 19:13 Pain Level 1 03/28/19 19:13
== END 2019-03-28 20:20 | disposition home or self-care (01) ==
PROVIDERS: Emergency Provider Emergency Medicine; PCP Physician Assistant Medical
DX: I87.2 Venous insufficiency (chronic) (peripheral) (principal); S80.812A Abrasion, left lower leg, initial encounter; W22.09XA Striking against other stationary object, initial encounter; J44.9 Chronic obstructive pulmonary disease, unspecified; F17.210 Nicotine dependence, cigarettes, uncomplicated; I10 Essential (primary) hypertension
CPT/HCPCS: 99282; 99283

== ENCOUNTER 2019-03-30 11:09 | Emergency (ER) | payer OTHER, SELFPAY ==
[2019-03-30 11:13] VITALS: BP 142/81; PULSE 71; RESP 18; TEMP 36.5; O2SAT 97
--- NOTE | 2019-03-30 11:35 | ED.GENADUL_ITS ---
Discharge Plan Disposition Patient Disposition: HOME Condition: Stable Discharge Details Chief Complaint: Cellulitis Clinical Impression: Venous stasis ulcer, Cellulitis Primary Care Provider: Travis Lemon ED Provider: Mesfin Drake Home Meds and New Rx's Prescriptions: New cephalexin [Keflex] 500 mg capsule 500 mg PO QID Qty: 40 RF: 0 Continued aspirin [Aspir-81] 81 MG tablet,delayed release (DR/EC) 81 mg PO DAILY RF: 0 clopidogrel [Plavix] 75 MG tablet 75 mg PO DAILY RF: 0 atorvastatin [Lipitor] 20 MG tablet 20 mg PO DAILY RF: 0 lisinopril 20 MG tablet 20 mg PO DAILY RF: 0 albuterol sulfate [ProAir HFA] 8.5 GM HFA aerosol inhaler 8.5 gm Inhalation DIRECTED RF: 0 Spiriva with HandiHaler 1 PUFF capsule, w/inhalation device 1 puff Inhalation DAILY RF: 0 Symbicort 10.2 GM HFA aerosol inhaler 2 puff Inhalation BID RF: 0 No Action hyoscyamine sulfate [Levsin/SL] 0.125 MG tablet, sublingual 0.125 mg Sublingual Q4H PRN Qty: 20 RF: 0 nitroglycerin [Nitrostat] 0.4 MG tablet, sublingual 1 tab Sublingual Q5 MIN PRN X3 PRNRF: 0 Discharge Instructions Instructions: Cellulitis (ED) Discharge Data Discharge Date/Time-TO BE ENTERED AT DEPARTURE: 03/30/19 11:50 Medical Decision Making 68-year-old male here for wound check for left lower extremity anterior venous stasis ulceration secondary to poor wound healing from blunt trauma few weeks ago with now with concern for possible secondary cellulitis no fluctuance no induration no concern for abscess. Will start the patient on Keflex and wound check with PCP or the emergency department in 3 to 4 days. Medical Records Medical records reviewed: Yes I reviewed the patient's medical records. HPI 68-year-old male past medical history of CAD with 2 stents hypertension hyperlipidemia COPD still smoking presents for wound check, pain and clear fluid draing from the wound to his left walker.patient fell against a metal truck bed 2 weeks ago banging his left walker at the time. Later that day patient noted bleeding around his sock and found an abrasion and tenderness consistent. Patient evaluated by me 2 days ago today feels that the wound might be more red and more painful at that time is more consistent with a venous stasis ulcer ulcer secondary to lower extremity trauma poorly healing contusion. No systemic symptoms no fever chills shortness of breath chest pain nausea vomiting or diarrhea. General Date/Time Provider Initiated Documentation: 03/30/19 11:25 . Related Data Home Medications Medication Instructions Recorded Confirmed aspirin [Aspir-81] 81 mg PO DAILY 08/19/13 03/28/19 atorvastatin [Lipitor] 20 mg PO DAILY 08/19/13 03/28/19 clopidogrel [Plavix] 75 mg PO DAILY 08/19/13 03/28/19 lisinopril 20 mg PO DAILY 08/19/13 03/28/19 nitroglycerin [Nitrostat] 1 tab SUBLINGUAL Q5 MIN PRN X3 PRN 08/19/13 03/28/19 albuterol sulfate [ProAir HFA] 8.5 gm INHALATION DIRECTED 03/22/17 03/28/19 Spiriva with HandiHaler 1 puff INHALATION DAILY 08/07/17 03/28/19 Symbicort 2 puff INHALATION BID 08/07/17 03/28/19 hyoscyamine sulfate [Levsin/SL] 0.125 mg SUBLINGUAL Q4H PRN #20 08/30/17 03/28/19 tab.sl cephalexin [Keflex] 500 mg PO QID #40 cap 03/30/19 Previous Rx's Medication Instructions Recorded hyoscyamine sulfate [Levsin/SL] 0.125 mg SUBLINGUAL Q4H PRN #20 08/30/17 tab.sl cephalexin [Keflex] 500 mg PO QID #40 cap 03/30/19 Allergies Allergy/AdvReac Type Severity Reaction Status Date / Time adhesive Allergy Intermediate Skin Rash Unverified 03/30/19 11:15 wool Allergy Intermediate Skin Rash Unverified 03/30/19 11:15 [email or web address] Allergy Intermediate Swelling/Ed Uncoded 03/30/19 11:15 tete General Stated Complaint: GenMedical TAL: 3 Review of Systems Review of Systems All systems reviewed & are unremarkable except as noted in HPI and below PFSH Social History Smoking/Tobacco Use Status: Current every day Tobacco Type: cigarettes Alcohol Intake: current Alcohol Intake frequency: 0-2 drinks per day Alcohol type: beer Drug use: Never Substance use type: does not use Do you feel safe at home: Yes Do you feel safe in your relationship?: Yes Exam Narrative Exam Narrative: Pulse oximetry reviewed by me and is normal [] Constitutional: Pt is in no acute distress. he is well appearing. he oriented to person, place, and time. Eyes: conjunctivae are normal. Pupils are equal, round, and reactive to light. No scleral icterus. extraocular muscles are intact Ears/Nose/Mouth/Throat: mucus membranes are moist. Musculoskeletal: neck is supple. normal range of motion in all extremities. Cardiovascular: Normal rate and rhythm. No lower extremity edema [] Respiratory: effort is normal . pt exhibits no stridor or respiratory distress. [] GastrointestinaI: abdomen soft, +BS, nontender, -rebound, -guarding. Neurological: alert and oriented to person, place, and time. he has normal strength, no tremor. Skin: Skin is warm and dry. he is not diaphoretic. Distal perfusion in tact, warm extremities, cap refill ? 2 seconds. Left lower extremity with anterior ulceration with some surrounding erythema but minimal to moderate warmth very mild tenderness to palp. Question of mild increase in erythema from previous evaluation. Hem/Lymph/Imm: No cervical LAD, no goiter, no conjunctival pallor Psych: normal mood and affect. behavior is normal Triage and nurse notes reviewed.[] Course Vital Signs Temperature 36.5 C 03/30/19 11:13 Pulse 71 03/30/19 11:13 Respiratory Rate 18 03/30/19 11:13 Blood Pressure 142/81 H 03/30/19 11:13 Pulse Oximetry 97 03/30/19 11:13 Temperature 36.5 C 03/30/19 11:13 Temperature Source Skin 03/30/19 11:13 Pulse 71 03/30/19 11:13 Respiratory Rate 18 03/30/19 11:13 Respiratory Effort Non-Labored 03/30/19 11:30 Blood Pressure 142/81 H 03/30/19 11:13 Pulse Oximetry 97 03/30/19 11:13 Oxygen Delivery Method Room Air 03/30/19 11:13 Oxygen Flow Rate 0 03/30/19 11:13 Pain Level 3 03/30/19 11:13
[2019-03-30 11:50] VITALS: BP 142/81; PULSE 71; RESP 18; TEMP 36.5; O2SAT 97
== END 2019-03-30 11:50 | disposition home or self-care (01) ==
PROVIDERS: Emergency Provider Emergency Medicine; PCP Physician Assistant Medical
DX: I87.2 Venous insufficiency (chronic) (peripheral) (principal); L03.116 Cellulitis of left lower limb; J44.9 Chronic obstructive pulmonary disease, unspecified; F17.210 Nicotine dependence, cigarettes, uncomplicated; I10 Essential (primary) hypertension
CPT/HCPCS: 99283

== ENCOUNTER 2019-04-14 15:36 | Outpatient (REF) | payer OTHER, SELFPAY | END 2019-04-14 15:56 | LOC: NCHCN 15:36 | PROVIDERS: PCP Physician Assistant Medical; Visit Provider Family Medicine | DX: L97.929 Non-pressure chronic ulcer of unspecified part of left lower leg with unspecified severity (principal) | CPT/HCPCS: 87070; 87205 ==

== ENCOUNTER 2019-05-04 20:51 | Outpatient (REF) | payer OTHER, SELFPAY ==
[2019-05-04 21:58] LABS: Calculated LDL 84; Cholesterol 144 mg/dL (50-200); HDL Cholesterol 45 mg/dL (40-60); Triglyceride 79 mg/dL (30-150)
== END 2019-05-04 21:11 ==
LOC: NCHCN 20:51
PROVIDERS: PCP Physician Assistant Medical; Visit Provider Physician Assistant Medical
DX: E78.5 Hyperlipidemia, unspecified (principal); I10 Essential (primary) hypertension; I25.10 Atherosclerotic heart disease of native coronary artery without angina pectoris
CPT/HCPCS: 80061; 83721

== ENCOUNTER 2019-11-02 12:43 | Emergency (ER) | payer OTHER, SELFPAY ==
[2019-11-02 12:45] VITALS: BP 148/102; PULSE 66; RESP 18; TEMP 36.7; O2SAT 98
[2019-11-02] MEDS: valACYclovir 1,000 MG TAB 3000 MG PO (14:25)
[2019-11-02 14:26] VITALS: BP 140/89; PULSE 58; RESP 16; TEMP 36.6; O2SAT 97
[2019-11-02 14:50] VITALS: BP 140/89; PULSE 58; RESP 16; TEMP 36.6; O2SAT 97
[2019-11-02] MEDS: Ondansetron O.D.T. 4 MG TABEF (15:59)
--- NOTE | 2019-11-03 12:30 | ED.GENADUL_ITS ---
Discharge Plan Disposition Patient Disposition: HOME Condition: Good Discharge Details Chief Complaint: RashLesion Clinical Impression: Shingles Primary Care Provider: Travis Lemon ED Provider: Daja Velez Home Meds and New Rx's Prescriptions: New valacyclovir 1 gram tablet 1,000 mg PO TID Qty: 18 RF: 0 No Action hyoscyamine sulfate [Levsin/SL] 0.125 MG tablet, sublingual 0.125 mg Sublingual Q4H PRN Qty: 20 RF: 0 aspirin [Aspir-81] 81 MG tablet,delayed release (DR/EC) 81 mg PO DAILY RF: 0 atorvastatin [Lipitor] 20 MG tablet 40 mg PO DAILY RF: 0 lisinopril 20 MG tablet 20 mg PO DAILY RF: 0 nitroglycerin [Nitrostat] 0.4 MG tablet, sublingual 1 tab Sublingual Q5 MIN PRN X3 PRNRF: 0 albuterol sulfate [ProAir HFA] 8.5 GM HFA aerosol inhaler 8.5 gm Inhalation DIRECTED RF: 0 Spiriva with HandiHaler 1 PUFF capsule, w/inhalation device 1 puff Inhalation DAILY RF: 0 Symbicort 10.2 GM HFA aerosol inhaler 2 puff Inhalation BID RF: 0 Discharge Instructions Instructions: Shingles (ED) Additional Instructions: Use Tylenol [id number] for soreness if needed. Use Valtrex as prescribed. Recheck with PCP this week as scheduled for reevaluation. Return for any worsening, concerns, difficulty managing pain or alarming symptoms sooner if needed. Please use caution to avoid women, immunocompromised persons, people who have not had chickenpox or had not been vaccinated chickenpox as discussed. Discharge Data Discharge Date/Time-TO BE ENTERED AT DEPARTURE: 11/02/19 14:50 Medical Decision Making This is a 69-year-old patient who presents for a painful rash along the left trunk which began approximately 5 days ago, rash was preceded by pain. No associated injury. Patient has received 1 of the 2 varicella vaccinations but d id not complete the series yet. Patient denies ill feeling or systemic symptoms. Rash on the left trunk is consistent with a dermatomal distribution of a vesicular rash which is painful consistent with shingles. Patient did have chickenpox as a child. Discussed shingles at length regarding contagious nature, populations to avoid, symptomatic management as well as expectations of improvement in the potential for postherpetic neuralgia. Patient reports his understanding. Patient reports he is concerned about money and pain for the prescription therefore an initial dose of Valtrex was ordered with 2 to go tablets to provide patient a full day of medication until he is able to fill the prescription tomorrow. Patient reports his understanding. Patient advised to follow-up closely with PCP. The patient was stable and requested discharge. Prior to discharge, my usual and customary return precautions were reviewed with the patient - this included follow-up instructions and reasons to return to the Emergency Department if conditions worsens, does not improve as expected, or other new concerns arise. Patient was provided all 3 tablets of Valtrex at once in error by nursing. Patient made aware of this error immediately. Poison control made aware. Poison control recommended no additional management. They reported likely patient could experience headache or nausea but no additional medicine should be provided today and patient can restart valtrex tomorrow. Patient made aware of the potential adverse effects of taking 3000 mg of Valtrex at once. Patient reports his understanding. He was provided a single tablet of Zofran if needed for symptomatic relief this evening. HPI General Date/Time Provider Initiated Documentation: 11/02/19 14:09 . HPI Narrative: Is a 69-year-old patient who presents for complaints of left trunk rash. Patient reports onset of rash approximately 5 days ago. Patient reports pain preceded onset of rash. Patient denies specific injury or trauma to the area. Patient does report even the shirt on his back is painful. Patient denies difficulty breathing, cough, shortness of breath or ill feeling in general. Energy is otherwise normal. Patient's been eating and drinking without difficulty. No other concerns or complaints. Patient did receive the first of his shingles vaccines Related Data Home Medications Medication Instructions Recorded Confirmed aspirin [Aspir-81] 81 mg PO DAILY 08/19/13 11/02/19 atorvastatin [Lipitor] 40 mg PO DAILY 08/19/13 11/02/19 lisinopril 20 mg PO DAILY 08/19/13 11/02/19 nitroglycerin [Nitrostat] 1 tab SUBLINGUAL Q5 MIN PRN X3 PRN 08/19/13 11/02/19 albuterol sulfate [ProAir HFA] 8.5 gm INHALATION DIRECTED 03/22/17 11/02/19 Spiriva with HandiHaler 1 puff INHALATION DAILY 08/07/17 11/02/19 Symbicort 2 puff INHALATION BID 08/07/17 11/02/19 hyoscyamine sulfate [Levsin/SL] 0.125 mg SUBLINGUAL Q4H PRN #20 08/30/17 11/02/19 tab.sl valacyclovir 1,000 mg PO TID #18 tab 11/02/19 Previous Rx's Medication Instructions Recorded hyoscyamine sulfate [Levsin/SL] 0.125 mg SUBLINGUAL Q4H PRN #20 08/30/17 tab.sl valacyclovir 1,000 mg PO TID #18 tab 11/02/19 Allergies Allergy/AdvReac Type Severity Reaction Status Date / Time adhesive Allergy Intermediate Skin Rash Unverified 11/02/19 13:34 wool Allergy Intermediate Skin Rash Unverified 11/02/19 13:34 [email or web address] Allergy Intermediate Swelling/Ed Uncoded 11/02/19 13:34 tete General Stated Complaint: RashLesion TAL: 4 Review of Systems All systems reviewed & are unremarkable except as noted in HPI and below Constitutional Constitutional: Denies chills, Denies fatigue, Denies fever(s), Denies headache(s) and Denies malaise ENT Ears, Nose, Mouth, and Throat: Denies headache(s) Cardiovascular Cardiovascular: Denies dyspnea and Denies dyspnea on exertion Respiratory Respiratory: Denies cough, Denies dyspnea, Denies dyspnea on exertion and Denies wheezing Musculoskeletal Musculoskeletal: Denies numbness Integumentary/Breasts Skin/Breast: Reports rash and Denies unusual bruising Neurologic Neurologic: Denies headache(s) and Denies numbness Endocrine Endocrine: Denies fatigue Allergic/Immunologic Allergic/Immunologic: Denies wheezing PFSH Medical History COPD (chronic obstructive pulmonary disease) [place] (myocardial infarction) Small bowel obstruction due to adhesions Social History Smoking/Tobacco Use Status: Current every day Tobacco Type: cigarettes Alcohol Intake: current Alcohol Intake frequency: 0-2 drinks per day Alcohol type: beer Drug use: Never Substance use type: does not use Do you feel safe at home: Yes Do you feel safe in your relationship?: Yes Exam Narrative Exam Narrative: CONST: Healthy appearing patient, in no acute distress. Well hydrated. Alert and alert. HENMT: Head nomocephalic, normal to inspection. Atraumatic. Hearing grossly normal. EYES: General normal appearance. Alignment normal. Eyelids normal. Conjunctiva normal. NECK: Normal visual inspection. FROM. Trachea midline. No Midline tenderness. CHEST: Normal insepection of the chest. Left trunk with vesicular, erythematous, painful rash in a single dermatome distribution in the left trunk wrapping around lateral chest wall toward the shoulder blade. Consistent with shingles RESP: Normal respiratory effort. Speaking full sentences. No cough. No audible wheezing. No retractions. Breath sounds equal and full bilaterally. No wheezing, rhonchi or rales CARDIO: No JVD. Regular rate and rhythm no murmur SKIN: Normal. Dry. No rashes. Vesicular rash consistent with shingles, see above description NEURO: Alert and awake. Speech clear. PSYCH: Normal affect. Cooperative. Course Vital Signs Vital signs: Vital Signs Temperature 36.7 C 11/02/19 12:45 Pulse 66 11/02/19 12:45 Respiratory Rate 18 11/02/19 12:45 Blood Pressure 148/102 H 11/02/19 12:45 Pulse Oximetry 98 11/02/19 12:45 Temperature 36.6 C 11/02/19 14:50 Temperature Source Skin 11/02/19 14:26 Pulse 58 L 11/02/19 14:50 Respiratory Rate 16 11/02/19 14:50 Respiratory Effort 11/02/19 13:32 Blood Pressure 140/89 11/02/19 14:50 Blood Pressure Position Sitting 11/02/19 12:45 Pulse Oximetry 97 11/02/19 14:50 Oxygen Delivery Method Room Air 11/02/19 12:45 Oxygen Flow Rate 0 11/02/19 12:45 Pain Level 2 11/02/19 14:50
== END 2019-11-02 14:50 | disposition home or self-care (01) ==
PROVIDERS: Emergency Provider Physician Assistant; PCP Physician Assistant Medical
DX: B02.9 Zoster without complications (principal); J44.9 Chronic obstructive pulmonary disease, unspecified; F17.210 Nicotine dependence, cigarettes, uncomplicated
CPT/HCPCS: 99283

== ENCOUNTER 2020-05-06 11:21 | Outpatient (REF) | payer OTHER, SELFPAY ==
[2020-05-06 20:07] LABS: ALT 33 U/L (16-63); AST 27 U/L (15-37); Alkaline Phosphatase 70 U/L (46-116); Anion Gap 7.6 mmol/L (3-11); BUN 24 mg/dL (7-18); Bilirubin, Total 0.7 mg/dL (0.2-1.0); CO2 28.4 mmol/L (21.0-32.0); CREATININE 1.17 mg/dL (0.70-1.30); Calcium 8.9 mg/dL (8.5-10.1); Calculated LDL 71 mg/dL (<100); Chloride 103 mmol/L (98-107); Cholesterol 126 mg/dL (<200); Glucose 81 mg/dL (74-106); HDL Cholesterol 45 mg/dL (40-60); Potassium 4.2 mmol/L (3.5-5.1); Sodium 139 mmol/L (136-145); Triglyceride 52 mg/dL (<150)
== END 2020-05-06 11:41 ==
LOC: NCHCN 11:21
PROVIDERS: PCP Physician Assistant Medical; Visit Provider Physician Assistant Medical
DX: I25.10 Atherosclerotic heart disease of native coronary artery without angina pectoris (principal)
CPT/HCPCS: 80053; 80061

== ENCOUNTER 2020-11-28 19:03 | Outpatient (REF) | payer OTHER, SELFPAY ==
[2020-11-28 15:36] LABS: Anion Gap 8.5 mmol/L (3-11); BUN 19 mg/dL (7-18); CO2 26.5 mmol/L (21.0-32.0); CREATININE 1.08 mg/dL (0.70-1.30); Calcium 8.9 mg/dL (8.5-10.1); Chloride 104 mmol/L (98-107); Glucose 95 mg/dL (74-106); Potassium 4.2 mmol/L (3.5-5.1); Sodium 139 mmol/L (136-145)
== END 2020-11-28 19:23 ==
LOC: NCHCN 19:03
PROVIDERS: PCP Physician Assistant Medical; Visit Provider Physician Assistant Medical
DX: R79.89 Other specified abnormal findings of blood chemistry (principal)
CPT/HCPCS: 80048

== ENCOUNTER 2021-02-20 13:30 | Outpatient (REF) | payer OTHER, SELFPAY ==
[2021-02-20 15:43] LABS: ALT 35 U/L (16-63); AST 26 U/L (15-37); Albumin 4.1 g/dL (3.4-5.0); Alkaline Phosphatase 70 U/L (46-116); Anion Gap 6.7 mmol/L (3-11); BUN 18 mg/dL (7-18); Bilirubin, Total 0.7 mg/dL (0.2-1.0); CO2 28.3 mmol/L (21.0-32.0); CREATININE 1.1 mg/dL (0.70-1.30); Calculated LDL 53 mg/dL (<100); Chloride 105 mmol/L (98-107); Cholesterol 119 mg/dL (<200); Glucose 93 mg/dL (74-106); HDL Cholesterol 57 mg/dL (40-60); Potassium 4.5 mmol/L (3.5-5.1); Sodium 140 mmol/L (136-145); Total Protein 7.1 g/dL (6.4-8.2); Triglyceride 48 mg/dL (<150)
== END 2021-02-20 13:31 | disposition home or self-care (01) ==
LOC: NCHCN 13:30
PROVIDERS: PCP Physician Assistant Medical; Visit Provider Physician Assistant Medical
DX: I25.10 Atherosclerotic heart disease of native coronary artery without angina pectoris (principal)
CPT/HCPCS: 80053; 80061

== ENCOUNTER 2022-07-03 18:27 | Outpatient (REF) | payer MEDICARE, SELFPAY ==
[2022-07-03 16:24] LABS: Abs Immature Grans 0.04 10^3/uL (0.0-0.06); Absolute Basophil Count 0.05 10^3/uL (0.0-0.2); Absolute Eosinophil Count 0.12 10^3/uL (0.0-0.7); Absolute Lymphocyte Count 1.38 10^3/uL (1.2-3.4); Absolute Monocyte Count 0.83 10^3/uL (0.1-0.8); Absolute Neutrophil Count 3.42 10^3/uL (1.2-6.7); Basophils % 0.9; Eosinophils % 2.1; HCT 44.8 % (40.0-50.0); HGB 15.6 g/dL (13.5-17.5); Immature Grans % 0.7; Lymphocytes % 23.6; MCH 32.6 pg (27.0-33.0); MCHC 34.8 % (32.0-36.0); MCV 94 fL (80-95); MPV 10.2 fL (8.0-11.0); Monocytes % 14.2; Neutrophils % 58.5; Platelet Count 210 10^3/uL (130-400); RBC 4.78 10^6/uL (4.36-5.78); RDW 13.1 % (11.8-14.1); RDW-SD 44.9 fL; WBC 5.84 10^3/uL (4.4-10.8)
[2022-07-03 16:35] LABS: ALT 35 U/L (16-63); AST 30 U/L (15-37); Alkaline Phosphatase 86 U/L (46-116); Anion Gap 8.6 mmol/L (3-11); BUN 14 mg/dL (7-18); Bilirubin, Total 0.7 mg/dL (0.2-1.0); CO2 28.4 mmol/L (21.0-32.0); Calcium 8.9 mg/dL (8.5-10.1); Calculated LDL 44 mg/dL (<100); Chloride 100 mmol/L (98-107); Cholesterol 114 mg/dL (<200); Glucose 104 mg/dL (74-106); HDL Cholesterol 63 mg/dL (40-60); Sodium 137 mmol/L (136-145); Total Protein 7.6 g/dL (6.4-8.2); Triglyceride 35 mg/dL (<150)
== END 2022-07-03 18:28 | disposition home or self-care (01) ==
LOC: NCHCN 18:27
PROVIDERS: PCP Physician Assistant Medical; Visit Provider Physician Assistant Medical
DX: I25.10 Atherosclerotic heart disease of native coronary artery without angina pectoris (principal)
CPT/HCPCS: 80053; 80061; 85025

== ENCOUNTER 2022-10-16 16:25 | Outpatient (REF) | payer MEDICARE, SELFPAY ==
[2022-10-16 15:42] LABS: Anion Gap 4.4 mmol/L (3-11); BUN 20 mg/dL (7-18); CO2 29.6 mmol/L (21.0-32.0); CREATININE 1.3 mg/dL (0.70-1.30); Calcium 8.8 mg/dL (8.5-10.1); Chloride 102 mmol/L (98-107); Glucose 96 mg/dL (74-106); Sodium 136 mmol/L (136-145)
== END 2022-10-16 16:26 | disposition home or self-care (01) ==
LOC: NCHCN 16:25
PROVIDERS: PCP Physician Assistant Medical; Visit Provider Physician Assistant Medical
DX: R79.89 Other specified abnormal findings of blood chemistry (principal)
CPT/HCPCS: 80048

== ENCOUNTER 2023-01-07 18:00 | Outpatient (REF) | payer MEDICARE, SELFPAY ==
[2023-01-07 19:02] LABS: Anion Gap 8.5 mmol/L (3-11); BUN 16 mg/dL (7-18); CO2 28.5 mmol/L (21.0-32.0); CREATININE 1.1 mg/dL (0.70-1.30); Calcium 9.3 mg/dL (8.5-10.1); Chloride 103 mmol/L (98-107); Estimated GFR 72.22 (mL/min/1.73m2); Glucose 107 mg/dL (74-106); Potassium 4.2 mmol/L (3.5-5.1); Sodium 140 mmol/L (136-145)
== END 2023-01-07 18:01 | disposition home or self-care (01) ==
LOC: NCHCN 18:00
PROVIDERS: PCP Physician Assistant Medical; Visit Provider Physician Assistant Medical
DX: I10 Essential (primary) hypertension (principal); I25.10 Atherosclerotic heart disease of native coronary artery without angina pectoris; J44.9 Chronic obstructive pulmonary disease, unspecified
CPT/HCPCS: 80048

== ENCOUNTER 2023-07-09 09:12 | Outpatient (REF) | payer MEDICARE, SELFPAY ==
[2023-07-09 15:15] LABS: ALT 27 U/L (16-63); AST 28 U/L (15-37); Albumin 3.6 g/dL (3.4-5.0); Alkaline Phosphatase 90 U/L (46-116); Anion Gap 6.3 mmol/L (3-11); BUN 19 mg/dL (7-18); Bilirubin, Total 0.4 mg/dL (0.2-1.0); CO2 27.7 mmol/L (21.0-32.0); CREATININE 1.1 mg/dL (0.70-1.30); Calcium 8.8 mg/dL (8.5-10.1); Calculated LDL 57 mg/dL (<100); Chloride 101 mmol/L (98-107); Cholesterol 123 mg/dL (<200); Estimated GFR 72.22 (mL/min/1.73m2); Glucose 100 mg/dL (74-106); HDL Cholesterol 58 mg/dL (40-60); Potassium 3.9 mmol/L (3.5-5.1); Sodium 135 mmol/L (136-145); Total Protein 7.1 g/dL (6.4-8.2); Triglyceride 40 mg/dL (<150)
== END 2023-07-09 09:13 | disposition home or self-care (01) ==
LOC: NCHCN 09:12
PROVIDERS: PCP Physician Assistant Medical; Visit Provider Physician Assistant Medical
DX: E78.5 Hyperlipidemia, unspecified (principal)
CPT/HCPCS: 80053; 80061

== ENCOUNTER 2024-06-29 11:47 | Outpatient (REF) | payer MEDICARE, SELFPAY ==
[2024-06-29 16:10] LABS: Abs Immature Grans 0.02 10^3/uL (0.0-0.06); Absolute Basophil Count 0.06 10^3/uL (0.0-0.2); Absolute Eosinophil Count 0.17 10^3/uL (0.0-0.7); Absolute Lymphocyte Count 0.97 10^3/uL (1.2-3.4); Absolute Monocyte Count 0.58 10^3/uL (0.1-0.8); Absolute Neutrophil Count 3.32 10^3/uL (1.2-6.7); Basophils % 1.2 %; Eosinophils % 3.3 %; HGB 13.6 g/dL (13.5-17.5); Immature Grans % 0.4 %; Lymphocytes % 18.9 %; MCH 32.2 pg (27.0-33.0); MCV 95 fL (80-95); Monocytes % 11.3 %; Neutrophils % 64.9 %; RBC 4.23 10^6/uL (4.36-5.78); RDW 12.7 % (11.8-14.1); RDW-SD 44.2 fL; WBC 5.12 10^3/uL (4.4-10.8)
[2024-06-29 17:05] LABS: ALT 33 U/L (16-63); AST 24 U/L (15-37); Albumin 3.7 g/dL (3.4-5.0); Alkaline Phosphatase 89 U/L (46-116); Anion Gap 7.3 mmol/L (3-11); BUN 19 mg/dL (7-18); Bilirubin, Total 0.61 mg/dL (0.2-1.0); CO2 27.7 mmol/L (21.0-32.0); CREATININE 1.1 mg/dL (0.70-1.30); Calcium 9.1 mg/dL (8.5-10.1); Calculated LDL 70 mg/dL (<100); Chloride 102 mmol/L (98-107); Cholesterol 135 mg/dL (<200); Estimated GFR 71.77 (mL/min/1.73m2); Glucose 88 mg/dL (74-106); HDL Cholesterol 57 mg/dL (40-60); Potassium 4.3 mmol/L (3.5-5.1); Sodium 137 mmol/L (136-145); Triglyceride 42 mg/dL (<150)
[2024-06-29 17:18] LABS: Diff Comment PLT Morph Reviewed; RBC Morphology Normal
== END 2024-06-29 11:48 | disposition home or self-care (01) ==
LOC: NCHCN 11:47
PROVIDERS: PCP Physician Assistant Medical; Visit Provider Physician Assistant Medical
DX: E78.5 Hyperlipidemia, unspecified (principal); N50.811 Right testicular pain; N50.812 Left testicular pain
CPT/HCPCS: 80053; 80061; 85025